=== PATIENT | female | born 1970 | race African-American/Black ===

== ENCOUNTER 2022-04-20 23:58 | Emergency (ER) | payer OTHER ==
[~2022-04-20] VITALS: Ht 162.6 cm; Wt 99.8 kg
--- NOTE | 2022-04-21 00:15 | NUR ---
Dr. Rivero at bedside for MSE.
[2022-04-21] MEDS ORDERED: LIDOCAINE 1%-EPI 1:100,000 20 ML VIAL ONE (00:24)
[2022-04-21] MEDS ORDERED: SODIUM BICARBONATE 4.2 % (NEUT) 5 ML VIAL ONE (00:24)
[2022-04-21] MEDS ORDERED: LORAZEPAM 1 MG TABLET ONE (00:28)
[2022-04-21] MEDS ORDERED: HYDROCODONE/APAP 10-325 MG TABLET ONE (00:29)
[2022-04-21] MEDS ORDERED: LIDOCAINE 1%-EPI 1:100,000 20 ML VIAL IJ ONE (00:30)
[2022-04-21] MEDS ORDERED: SULFAMETH/TRIMETH 800/160 MG TABLET PO ONE (00:30)
[2022-04-21] MEDS ORDERED: LORAZEPAM 0.5 MG TABLET PO ONE (00:30)
[2022-04-21] MEDS ORDERED: SODIUM BICARBONATE 4.2 % (NEUT) 5 ML VIAL TP ONE (00:30)
[2022-04-21] MEDS ORDERED: HYDROCODONE/APAP 10-325 MG TABLET PO ONE (00:30)
[2022-04-21] MEDS ORDERED: SULFAMETH/TRIMETH 800/160 MG TABLET ONE (00:40)
[2022-04-21] MEDS ORDERED: SULF1TAB48 PO (00:45)
[2022-04-21 00:51] VITALS: BP 124/82
--- NOTE | 2022-04-21 00:51 | NUR ---
Patient discharged to home in stable condition. Written and verbal after care instructions given. Patient verbalizes understanding of instructions. Stressed follow up or return to ER for worsening s/s. Patient out of ER with steady gait, no acute signs of distress, VSS, all belongings taken.
== END 2022-04-21 00:52 | disposition home or self-care (01) ==
LOC: ER 04-21 00:30
DX: L02.212 Cutaneous abscess of back [any part, except buttock and flank] (principal); G89.4 Chronic pain syndrome
CPT/HCPCS: 99284; 10060; J3490 ×2; A4663

== ENCOUNTER 2023-08-21 07:50 | Emergency (ER) | payer OTHER ==
[~2023-08-21] VITALS: Ht 162.6 cm; Wt 99.8 kg
[~2023-08-21 07:50] MED LIST: SULF1TAB48 PO
[2023-08-21 09:13] LABS: BASOPHILS # (AUTO) 0.1 K/UL (0.0-0.2); BASOPHILS % (AUTO) 0.8 % (0.0-2.0); EOSINOPHILS # (AUTO) 0.2 K/uL (0.0-0.7); EOSINOPHILS % (AUTO) 2.9 % (0.0-7.0); HEMATOCRIT 39.1 % (31.2-41.9); HEMOGLOBIN 13.1 g/dL (10.9-14.3); LYMPHOCYTES # (AUTO) 2.1 K/uL (0.8-4.8); LYMPHOCYTES % (AUTO) 27.8 % (20.5-51.5); MEAN CORPUSCULAR HEMOGLOBIN 31.7 uug (24.7-32.8); MEAN CORPUSCULAR HGB CONC 34 g/dL (32.3-35.6); MEAN CORPUSCULAR VOLUME 94.3 fL (75.5-95.3); MONOCYTES # (AUTO) 0.4 K/uL (0.1-1.30); MONOCYTES % (AUTO) 5.4 % (0.0-11.0); NEUTROPHILS # (AUTO) 4.8 K/uL (1.8-8.9); NEUTROPHILS % (AUTO) 63.1 % (38.5-71.5); PLATELET COUNT (AUTO) 286 K/uL (179-408); RED BLOOD CELL COUNT(AUTO) 4.14 MIL/uL (3.63-4.92); WHITE BLOOD COUNT (AUTO) 7.7 K/uL (3.8-11.8)
[2023-08-21 09:18] LABS: DIFFERENTIAL COMMENT 1
[2023-08-21 09:22] LABS: CALCIUM 9.7 mg/dL (8.5-10.1); CREATININE 0.7 mg/dL (0.6-1.3)
[2023-08-21 09:29] LABS: ALBUMIN 3.8 g/dL (3.4-5.0); BILIRUBIN,DIRECT 0.1 mg/dL (0.0-0.2); BILIRUBIN,TOTAL 0.3 mg/dL (0.2-1.0); TOTAL PROTEIN, SERUM 8.1 g/dL (6.4-8.2)
[2023-08-21] MEDS ORDERED: FLUC200T PO (10:39)
[2023-08-21 10:46] VITALS: BP 122/80; TEMP 98; O2SAT 99
[2023-08-21 10:55] LABS: *BILIRUBIN,URIN NEGATIVE (NEGATIVE); *BLOOD, URINE NEGATIVE (NEGATIVE); *CLARITY,URINE CLEAR (CLEAR); *COLOR,URINE YELLOW (YELLOW); *KETONES,URINE NEGATIVE (NEGATIVE); *PROTEIN,URINE NEGATIVE (NEGATIVE); *UROBILINOGEN,URINE 0.2 E.U./dl (NORMAL); LEUKOCYTE ESTERASE ,URINE NEGATIVE (NEGATIVE); NITRITE, URINE NEGATIVE (NEGATIVE); PH,URINE 5.5 (5.0-8.0); UGLUCOSE NEGATIVE (NEGATIVE)
== END 2023-08-21 10:46 | disposition home or self-care (01) ==
LOC: ER 07:50
DX: B37.31 Acute candidiasis of vulva and vagina (principal); L72.3 Sebaceous cyst; Z79.899 Other long term (current) drug therapy; Z60.2 Problems related to living alone
CPT/HCPCS: 36415; 83690; 85025; A4606; A4663

== ENCOUNTER 2025-01-02 23:06 | Emergency (ER) | payer OTHER, MEDICAID ==
[~2025-01-02] VITALS: Ht 162.6 cm; Wt 99.8 kg
[~2025-01-02 23:06] MED LIST changes: +FLUC200T PO
[2025-01-02] MEDS: NEOMY/BACITRA/POLYMYXIN B OINT UD PACKET TP ONE (23:45)
[2025-01-03] MEDS ORDERED: MAG HYDROX/AL HYDROX/SIMETH 30 ML LIQUID UDC ONE (00:41)
[2025-01-03] MEDS ORDERED: NEOMY/BACITRA/POLYMYXIN B OINT UD PACKET TP ONE ×2 (00:41→03:29)
[2025-01-03] MEDS ORDERED: TDAP DIPH,PERTUSS,TET VAC/PF 0.5 ML DISP.SYRIN IM ONE (00:42)
[2025-01-03] MEDS ORDERED: KETOROLAC TROMETHAMINE 30 MG INJ ONE (00:53)
[2025-01-03] MEDS: MAG HYDROX/AL HYDROX/SIMETH 30 ML LIQUID UDC PO ONE (00:55)
[2025-01-03] MEDS: KETOROLAC TROMETHAMINE 30 MG INJ IM ONE (00:56)
[2025-01-03] MEDS: TDAP DIPH,PERTUSS,TET VAC/PF 0.5 ML DISP.SYRIN IM ONE (00:58)
[2025-01-03] MEDS: NEOMY/BACITRA/POLYMYXIN B OINT UD PACKET TP ONE (03:30)
[2025-01-03 04:41] VITALS: BP 122/70; O2SAT 97
== END 2025-01-03 04:30 | disposition home or self-care (01) ==
LOC: ER 23:11
DX: S63.591A Other specified sprain of right wrist, initial encounter (principal); S01.81XA Laceration without foreign body of other part of head, initial encounter; S50.311A Abrasion of right elbow, initial encounter; Z60.2 Problems related to living alone; Z87.19 Personal history of other diseases of the digestive system; V19.9XXA Pedal cyclist (driver) (passenger) injured in unspecified traffic accident, initial encounter; Y93.89 Activity, other specified; Y92.488 Other paved roadways as the place of occurrence of the external cause; Y99.8 Other external cause status
CPT/HCPCS: 12013; 73100; 90471; 90715; 96372; 99284; J1885; A4606; A4663